=== PATIENT | male | born 1935 | race Caucasian/White ===

== ENCOUNTER → 2017-03-09 | Outpatient (CLI) | payer MEDICARE, BC ==
[2016-06-09 14:00] VITALS: BP 111/68
[~2017-03-09] MED LIST: ASCO10002 PO; ASPI-630 PO; CALC500T30 PO; CHOL20002 PO; LEVO100T5 PO; OMEG1CAP6 PO; PILO5TAB16 PO; TAMS0.4C97 PO; TRAM50TA PO; VITA1CAP PO
--- NOTE | 2017-03-09 15:34 | CARD ---
APPROVED REPORT EXAM: Two-dimensional and M-mode echocardiogram with Doppler and color Doppler. Other Information Quality : GoodHR: 60bpm Rhythm : NSR INDICATION Edema 2D DIMENSIONS RVDd2.8 (2.9-3.5cm)Left Atrium(2D)4.0 (1.6-4.0cm) IVSd1.1 (0.7-1.1cm)Aortic Root(2D)3.7 (2.0-3.7cm) LVDd4.4 (3.9-5.9cm)LVOT Diameter2.2 (1.8-2.4cm) PWd1.1 (0.7-1.1cm)LVDs3.2 (2.5-4.0cm) FS (%) 27.9 %SV47.1 ml LVEF(%)54.3 (>50%) Aortic Valve AoV Peak Michel.126.4cm/sAoV VTI25.1cm AO Peak GR.6.4mmHgLVOT Peak Michel.77.0cm/s AO Mean GR.4mmHgAVA (VMAX)2.26cm2 Mitral Valve MV E Meoahevl09.4cm/sMV E Peak Gr.3mmHg MV DECEL [id number] A Vakurflh68.6cm/s MV E Mean Gr.1mmHgE/A Ratio0.8 MV A [id number] Pulmonary Valve PV Peak Esnrfoww890.6cm/s Tricuspid Valve TR P. Rqqdykxx075nl/sTR Peak Gr.25mmHg Pulmonary Vein S1 Jczzncxj28.9cm/sD2 Lixkgnpf31.4cm/s PVa [id number] LEFT VENTRICLE The left ventricle is normal size. There is normal left ventricular wall thickness. The left ventricu lar systolic function is normal. The Ejection Fraction is 55%. There is normal LV segmental wall lenny on. Transmitral Doppler flow pattern is Grade I-abnormal relaxation pattern. RIGHT VENTRICLE The right ventricle is normal size. There is normal right ventricular wall thickness. The right ventr icular systolic function is normal. ATRIA The left atrium is mildly dilated. The right atrium size is normal. The interatrial septum is intact with no evidence for an atrial septal defect or patent foramen ovale as noted on 2-D or Doppler imagi ng. AORTIC VALVE The aortic valve is not well visualized but appears mildly calcified and opens adequately. Doppler an d Color Flow revealed no significant aortic regurgitation. There is no significant aortic valvular st enosis. MITRAL VALVE The mitral valve leaflets are mildly thickened. There is no evidence of mitral valve prolapse. There is no mitral valve stenosis. Doppler and Color Flow revealed mild mitral regurgitation. TRICUSPID VALVE Doppler and Color Flow revealed mild tricuspid regurgitation. The pulmonary artery systolic pressure is estimated at 28 mmHg. There is no pulmonary hypertension. PULMONIC VALVE The pulmonary valve is not well visualized but appears to open adequately. Doppler and Color Flow rev ealed trace pulmonic valvular regurgitation. There is no pulmonic valvular stenosis by spectral Doppl er. GREAT VESSELS The aortic root is mildly enlarged. The ascending aorta is normal in size. The pulmonary artery is no rmal. The IVC is normal in size and collapses >50% with inspiration. PERICARDIAL EFFUSION There is no evidence of significant pericardial effusion. Critical Notification Critical Value: No <Conclusion> The left ventricular systolic function is normal. The Ejection Fraction is 55%. There is normal LV segmental wall motion. Transmitral Doppler flow pattern is Grade I-abnormal relaxation pattern. Mild mitral regurgitation. Mild tricuspid regurgitation. The pulmonary artery systolic pressure is estimated at 28 mmHg. There is no evidence of significant pericardial effusion.
--- NOTE | 2017-03-09 16:59 | RAD ---
APPROVED REPORT Patient Location: OUT-PATIENT Indications Rest Pain: VELOCITY AND DOPPLER WAVEFORM ANALYSIS RIGHT cm/secWaveformSeverity LEFT c m/secWaveformSeverity pCFA 162.0BiphasicpCFA 195.2Biphasic Prof Fem Art. 208.2 Prof Fem Art. 129.6 Fem Art Prox. 94.4BiphasicFem Art Prox. 123.1Biphasic Fem Art Mid. 112.0BiphasicFem Art Mid. 116.5Biphasic Fem Art Dist. 87.0BiphasicFem Art Dist. 213.6Biphasic Pop Art(Fossa) 83.2BiphasicPop Art(Fossa) 82.7Biphasic [place] Dist. 36.5BiphasicPTA Dist. 78.3Biphasic Per Art Dist. 63.9BiphasicPer Art Dist. 56.9Biphasic [place] Dist. 110.7BiphasicATA Dist. 81.9Biphasic Findings Ferguson scale images of the bilateral lower extremity arterial vessels reveal moderate diffuse atheroscl erosis. Elevated velocities are noted at the bilateral common femoral arteries but due to lack of mor e proximal velocity profile is unclear if this is related to any high-grade disease but suspect proba ble moderate disease in the segments. On the right side there are biphasic waveforms extending from the common femoral artery to the dorsal is pedis 3 vessel runoff below the knee. No significant velocity acceleration is noted. Suspect mild diffuse atherosclerotic disease. On the left side there are again biphasic waveforms extending from the common femoral artery to the d orsalis pedis vessel with 3 vessel runoff below the knee. There is velocity acceleration at the level of the mid to distal SFA suggestive of approximately a 50% stenosis. Critical Notification Critical Value: No <Conclusion> 1. 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 2. Probable 50% stenosis or higher at the level of the left mid to distal SFA. 3. Bilateral three-vessel runoff of the lower extremities.
--- NOTE | 2017-03-09 17:00 | RAD ---
APPROVED REPORT Indications Lower Extremity Edema : Bilateral Lesser Saphenous Veins (LSV) Right Giacomini Vein : Present : No Reflux : No Leftt Giacomini Vein : Present : No Reflux : No Accessory Veins Right Anterior Accessory Vein : Present : No Reflux : No Leftt Anterior Accessory Vein : Present : No Reflux : No Right Posterior Accessory Vein : Present : No Reflux : No Left Posterior Accessory Vein : Present : No Reflux : No Findings Limited grayscale images of the bilateral greater and lesser saphenous veins do not reveal any eviden ce of thrombus. The right great saphenous vein measures 4.8 mm and does not show any evidence of reflux. The left gre at saphenous vein measures 4.2 mm and does not show any evidence of reflux. Bilaterally the lesser sa phenous veins do not show any evidence of reflux. Critical Notification Critical Value: No <Conclusion> 1. Negative for reflux in the bilateral greater and lesser saphenous veins.
== END | disposition home or self-care (01) ==
LOC: US 15:15
PROVIDERS: ATTEND Internal Medicine Cardiovascular Disease
DX: I08.1 Rheumatic disorders of both mitral and tricuspid valves (principal); M79.662 Pain in left lower leg; M79.661 Pain in right lower leg; R60.0 Localized edema
CPT/HCPCS: 93306; 93925; 93970